=== PATIENT | male | born 1990 | race Caucasian/White ===

== ENCOUNTER 2016-04-16 22:12 | Emergency (ER) | payer OTHER ==
--- NOTE | 2016-04-16 23:59 | PROVIDER DOCUMENTATION ---
HPI-Musculoskeletal Pain/Inj - GENERAL Source: patient - HX OF PRESENT ILLNESS-MUSKULOSKELTAL Quality of Pain: reports: aching Severity in ED: mild Onset/Duration: other (2 weeks) Timing: still present Any recent injury?: No Locality of Occurance: Home Similar Symptoms Previously?: Yes Recently seen or treated by another doctor?: Yes - BACK & NECK PAIN/INJURY Back/Neck Pain Location: reports: T-spine, lumbar spine Associated Symptoms: reports: denies symptoms History of Chronic Neck or Back Pain?: Yes <Alka Brewer - Last Filed: 04/16/16 23:56> <Ramón Dobbs - Last Filed: 04/17/16 00:13> - GENERAL Chief Complaint: Back Pain Stated Complaint: BACK PAIN Time Seen by Provider: 04/16/16 23:56 - HX OF PRESENT ILLNESS-MUSKULOSKELTAL Nature of Presenting Problem: 25 year old M presents to the ED with a cc of back pain x2 weeks. PT states that pain has been worse the past 2 days. PT denies injury. (Alka Brewer) Review of Systems - Adult - REVIEW OF SYSTEMS - ADULT Constitutional: denies: chills, fever Eyes: reports: no symptoms reported Ears, Nose, Mouth & Throat: denies: ear discharge, throat pain Cardiovascular: denies: chest pain, palpitations Respiratory: denies: cough, shortness of breath Gastrointestinal: denies: nausea, vomiting Genitourinary: reports: no symptoms reported Musculoskeletal: reports: back pain. denies: neck pain Integumentary: denies: skin sores/ulcer, skin thickening Neurological: reports: no symptoms reported Psychiatric: reports: no symptoms reported Endocrine: reports: no symptoms reported Hematologic/Lymphatic: reports: no symptoms reported Allergic/Immunologic: reports: no symptoms reported All Other Systems: Reviewed and Negative <Alka Brewer - Last Filed: 04/16/16 23:56> Past History - Adult - PAST MEDICAL HISTORY-ADULT Review of Records: reports: Nursing Assessment Review, Medications Reviewed Major Childhood Illnesses: reports: denies history Cardiovascular: reports: HTN Respiratory: reports: asthma Gastrointestinal: reports: GERD Musculoskeletal: reports: chronic pain Neurological: reports: headaches/migraines Psychiatric: reports: anxiety, bipolar Other Conditions: reports: denies history Additional History: Frequent ED Visits - PRIOR SURGERIES/PROCEDURES Surgical/Procedure History: reports: cholecystectomy (11/2015), other (rectal, tubes in ears) - PRIOR HOSPITALIZATIONS Prior Hospitalizations: reports: none - IMMUNIZATION STATUS Childhood Immunizations: See Nurse Assessment Flu Vaccine: See Nurse Assessment - FAMILY HISTORY Family History: reviewed, not pertinent <OsmanAlka - Last Filed: 04/16/16 23:56> Physical Exam-Injury Related - Physical Exam-Injury Related Initial Vital Signs Reviewed: Yes General Appearance: appears well, alert, no apparent distress Neck: non-tender, full range of motion, supple, normal inspection Respiratory: chest non-tender, lungs clear, normal breath sounds Cardiovascular: normal peripheral pulses, regular rate, rhythm, no edema Back Exam: vertebral tenderness (thorasic and lumbar, greater in lumbar). negative: no CVA tenderness Extremity: normal inspection Integumentary: normal color, warm/dry Psych/Mental Status: AL, normal mood/affect, normal thought content, normal thought process, oriented x 3 <Alka Brewer - Last Filed: 04/16/16 23:56> Departure <Alka Brewer - Last Filed: 04/16/16 23:56> - Departure Time of Disposition Order: 00:10 Certified Medical Emergency: Emergent <Ramón Dobbs - Last Filed: 04/17/16 00:13> - Departure DIAGNOSIS: Low back pain Qualifiers: Chronicity: chronic Back pain laterality: midline Sciatica presence: without sciatica Qualified Code(s): M54.5 - Low back pain; G89.29 - Other chronic pain Disposition: HOME 01 Condition: Stable Additional Instructions: ED Follow Up Instructions: You have been treated by a care provider in the Emergency Department. These instructions are being provided to you so you can have an understanding of how to care for yourself upon discharge. Upon discharge from the Emergency Department, you are responsible for making arrangements for follow-up care by a physician of your choice. Take all prescribed medications as directed. Return to the Emergency Department immediately for any new or worsening symptoms. You may call the Physician Referral phone number at [phone] to obtain a list of Physicians who are taking new patients. Prescriptions: Ibuprofen [Motrin] 800 mg PO Q8H PRN PRN #20 tablet PRN Reason: inflammation Orphenadrine [Norflex] 100 mg PO BID #10 tablet Attestation - Scribe Verification/Attestation Scribe:: Alka Brewer Acting as Scribe for:: Ramón Dobbs Scribe documention review:: This chart was documented by a scribe and accurately reflects the service the provider performed and the decisions made by the provider. <Alka Brewer - Last Filed: 04/16/16 23:56> - Physician/ Mid-level Attestation Patient care was provided by Mid-level provider (HOG TRADER/PA):: Yes Mid-level provider:: Ramón Dobbs Mid-level documentation review:: The Mid-level provider documentation, treatment plan and medical decision making was reviewed by the physician who agrees with all treatment and medical decision making by the MLP. <Ramón Dobbs - Last Filed: 04/17/16 00:13> Physician Attestation - Physician Attestation I, the provider, attest to the following statement:: Ramón Dobbs Physician documentation Attestation:: This documentation recorded by the scribe accurately reflects the service I personally performed and the decisions made by me. <Alka Brewer - Last Filed: 04/16/16 23:56>
[2016-04-17] MEDS ORDERED: NORFLEX IM ONE (00:09)
[2016-04-17] MEDS ORDERED: MOTRIN PO ONE (00:10)
[2016-04-17 00:41] VITALS: BP 133/79
== END 2016-04-17 00:41 | disposition home or self-care (01) ==
LOC: ED 22:12
DX: M54.5 Low back pain (principal); G89.29 Other chronic pain; M54.6 Pain in thoracic spine; I10 Essential (primary) hypertension
CPT/HCPCS: 96372; J2360

== ENCOUNTER 2016-04-22 00:09 | Emergency (ER) | payer OTHER ==
--- NOTE | 2016-04-22 01:07 | PROVIDER DOCUMENTATION ---
HPI-General Adult - General Source: patient - History of Present Illness -Gen Adult Nature of Presenting Problems: 25 y/o m presents to the ed with left eye pain X 1 day. pt denies any foreign body to the eye. pt states he don't know why his eye hurts. Location of Pain/Injury: reports: other (left eye) Quality of Pain: reports: aching Severity: reports: mild Onset/Duration: reports: this morning Timing: reports: still present Similar Symptoms Previously?: No Recently seen or treated by another doctor?: No <Ami Ann - Last Filed: 04/22/16 01:04> <Lali Hayes - Last Filed: 04/22/16 01:26> - General Chief Complaint: Eye Complaint Stated Complaint: LT EYE COMPLAINT Time Seen by Provider: 04/22/16 00:43 Allergies/Adverse Reactions: Patient Allergies Allergy/AdvReac Type Severity Reaction Status Date / Time azithromycin Allergy Mild ITCHING Verified 04/22/16 00:21 dicyclomine HCl * Allergy Mild ITCHING Verified 04/22/16 00:21 [From Bentyl] ketorolac tromethamine * Allergy Mild ITCHING Verified 04/22/16 00:21 [From Toradol] Penicillins Allergy Mild ITCHING Verified 04/22/16 00:21 lorazepam [From Ativan] AdvReac Severe FEELS LIKE Verified 04/22/16 00:21 HIS BODY IS ON FIRE atomoxetine HCl * AdvReac Mild AGITATION Verified 04/22/16 00:21 [From Strattera] Home Medications: Albuterol Sulfate [Proair Hfa] 2 puff INH DIRECTED PRN PRN 02/24/16 Review of Systems - Adult - REVIEW OF SYSTEMS - ADULT Constitutional: denies: chills, fever Eyes: reports: eye pain. denies: discharge Neurological: denies: dizziness/vertigo, headache/migraines <Ami Ann - Last Filed: 04/22/16 01:04> Past History - Adult - PAST MEDICAL HISTORY-ADULT Review of Records: reports: Old Records Reviewed, Nursing Assessment Review, Medications Reviewed Major Childhood Illnesses: reports: denies history Cardiovascular: reports: HTN Respiratory: reports: asthma Gastrointestinal: reports: GERD Musculoskeletal: reports: chronic pain Neurological: reports: headaches/migraines Psychiatric: reports: anxiety, bipolar Other Conditions: reports: denies history Additional History: Frequent ED Visits - PRIOR SURGERIES/PROCEDURES Surgical/Procedure History: reports: cholecystectomy (11/2015), other (rectal, tubes in ears) - PRIOR HOSPITALIZATIONS Prior Hospitalizations: reports: none - IMMUNIZATION STATUS Childhood Immunizations: See Nurse Assessment Flu Vaccine: See Nurse Assessment - FAMILY HISTORY Family History: reviewed, not pertinent - SOCIAL HISTORY Smoking: cigarettes, less than 1 pack/day Provider spent 3-5 mins advising pt. on dangers of tobacco.: Discussed manners to quit use, and f/u contacts for add'l counseling. <Ami Ann - Last Filed: 04/22/16 01:04> Physical Exam-General - PHYSICAL EXAM-ADULT Initial Vital Signs Reviewed: Yes - CONSTITUTIONAL General Appearance: alert, no apparent distress - EYES Eyes: PERRL/EOMI, pink conjunctivae, fundi clear, no AV nicking - HEAD, EARS, NOSE, MOUTH & THROAT HENMT: normocephalic/atraumatic, moist mucous membranes, normal ENT inspection, TMs normal - NECK Neck: non-tender, full range of motion, supple - RESPIRATORY Respiratory: chest non-tender, lungs clear, normal breath sounds - CARDIOVASCULAR Cardiovascular: normal peripheral pulses, regular rate, rhythm - GASTROINTESTINAL (ABDOMEN) Abdominal Exam: normal bowel sounds, non tender, soft - LYMPHATIC Lymphatic: no adenopathy - SKIN Integumentary: normal color, normal turgor, warm/dry - PSYCHIATRIC Psych/Mental Status: normal mood/affect, normal thought content, normal thought process, oriented x 3 <Ami Ann - Last Filed: 04/22/16 01:04> Progress - PLAN OF CARE/RESULTS Progress/Plan/Lab Results: Orders Category Date Time Status Acetaminophen [Tylenol] Med 04/22/16 01:25 Once 650 mg PO NOW ONE Vital Signs Temp Pulse Resp BP Pulse Ox 04/22/16 00:17 97.6 F 109 H 17 161/60 100 azithromycin Allergy (Mild, Verified 04/22/16 00:21) ITCHING dicyclomine HCl * [From Bentyl] Allergy (Mild, Verified 04/22/16 00:21) ITCHING ketorolac tromethamine * [From Toradol] Allergy (Mild, Verified 04/22/16 00:21) ITCHING Penicillins Allergy (Mild, Verified 04/22/16 00:21) ITCHING lorazepam [From Ativan] Adverse Reaction (Severe, Verified 04/22/16 00:21) FEELS LIKE HIS BODY IS ON FIRE atomoxetine HCl * [From Strattera] Adverse Reaction (Mild, Verified 04/22/16 00: 21) AGITATION Albuterol Sulfate [Proair Hfa] 2 puff INH DIRECTED PRN PRN 02/24/16 Bisacodyl [Dulcolax] 10 mg AR QHS #20 supp 02/24/16 Polyethylene Glycol 3350 [Miralax] 255 gm PO DAILY #1 powder 02/24/16 Promethazine [Phenergan] 25 mg PO Q6H PRN PRN #20 tablet 02/24/16 Prednisone 20 mg PO DAILY #6 tablet 03/09/16 Albuterol Sulfate Inhaler [Ventolin Hfa] 2 puff INH Q6H PRN PRN #1 inhaler 03/15 Guaifenesin/Dm E.r. [Mucinex Dm] 1 each PO BID #30 tablet 03/15/16 Benzonatate [Tessalon] 100 mg PO TID PRN PRN #21 capsule 03/21/16 Doxycycline 100 mg PO BID #14 tablet 03/21/16 Ibuprofen [Motrin] 800 mg PO Q8H PRN PRN #20 tablet 04/17/16 Orphenadrine [Norflex] 100 mg PO BID #10 tablet 04/17/16 Glycerin/Propylene Glycol [Advanced Eye Relief Eye Drops] 15 ml OP 4XDAY PRN PRN #1 drops 04/22/16 Discussed medications with pt and f/u with specialist. <Lali Hayes - Last Filed: 04/22/16 01:26> Departure <Ami Ann - Last Filed: 04/22/16 01:04> - Departure Time of Disposition Order: 01:23 Certified Medical Emergency: Emergent <Lali Hayes - Last Filed: 04/22/16 01:26> - Departure DIAGNOSIS: Pain, eye, left Disposition: HOME 01 Condition: Stable Additional Instructions: Take medications as directed. Follow up with specialist as needed. ED Follow Up Instructions: You have been treated by a care provider in the Emergency Department. These instructions are being provided to you so you can have an understanding of how to care for yourself upon discharge. Upon discharge from the Emergency Department, you are responsible for making arrangements for follow-up care by a physician of your choice. Take all prescribed medications as directed. Return to the Emergency Department immediately for any new or worsening symptoms. You may call the Physician Referral phone number at [phone] to obtain a list of Physicians who are taking new patients. Prescriptions: Glycerin/Propylene Glycol [Advanced Eye Relief Eye Drops] 15 ml OP 4XDAY PRN PRN #1 drops PRN Reason: Pain Referrals: None,PCP [Primary Care Provider] - Elvin Mclain MD [STAFF PHYSICIAN] - Attestation - Physician/ Mid-level Attestation Patient care was provided by Mid-level provider (SHOT POLISHER/PA):: Yes Mid-level provider:: Lali Hayes Mid-level documentation review:: The Mid-level provider documentation, treatment plan and medical decision making was reviewed by the physician who agrees with all treatment and medical decision making by the [facility]. <Lali Hayes - Last Filed: 04/22/16 01:26> Physician Attestation
[2016-04-22] MEDS ORDERED: TYLENOL PO ONE (01:25)
[2016-04-22 01:49] VITALS: BP 152/60
== END 2016-04-22 01:49 | disposition home or self-care (01) ==
LOC: ED 00:09
DX: H57.12 Ocular pain, left eye (principal); I10 Essential (primary) hypertension; J45.909 Unspecified asthma, uncomplicated; G89.29 Other chronic pain; F17.210 Nicotine dependence, cigarettes, uncomplicated; Z79.899 Other long term (current) drug therapy; Z71.6 Tobacco abuse counseling
CPT/HCPCS: 99282

== ENCOUNTER 2016-06-09 16:05 | Emergency (ER) | payer OTHER ==
--- NOTE | 2016-06-09 16:51 | PROVIDER DOCUMENTATION ---
HPI-Abdominal Pain/GI Problem - General Source: patient - History of Present Illness-ABD Nature of Presenting Problems: Pt is a 25 yom who presents to ER with CC of "Hurts in my appendix area" and indicates his RUQ. Pt reports he has had this pain x2 days and describes it as a constant, sharp pain in his RUQ. Pt denies any pre-arrival treatment for his pain, but does report that he was able to eat a big mac, fries, and large soda machine printer hose. Abdominal Pain Onset Location: reports: RUQ Pain Radiation: reports: no radiation Quality of Pain: reports: sharp Severity in ED: reports: moderate Onset/Duration: reports: 2 days ago Timing: reports: constant Associated Symptoms: denies: chest pain, constipation, diarrhea, EENT symptoms, loss of appetite, nausea, vomiting, weakness, trouble walking Last BM: unsure <Justin Chávez - Last Filed: 06/09/16 17:18> <Kimberly Mcqueen - Last Filed: 06/09/16 18:19> - General Chief Complaint: Abdominal Pain Stated Complaint: RT SIDE ABD PAIN X 3DAYS Time Seen by Provider: 06/09/16 16:50 Allergies/Adverse Reactions: Patient Allergies Allergy/AdvReac Type Severity Reaction Status Date / Time azithromycin Allergy Mild ITCHING Verified 04/22/16 00:21 dicyclomine HCl * Allergy Mild ITCHING Verified 04/22/16 00:21 [From Bentyl] ketorolac tromethamine * Allergy Mild ITCHING Verified 04/22/16 00:21 [From Toradol] Penicillins Allergy Mild ITCHING Verified 04/22/16 00:21 lorazepam [From Ativan] AdvReac Severe FEELS LIKE Verified 04/22/16 00:21 HIS BODY IS ON FIRE atomoxetine HCl * AdvReac Mild AGITATION Verified 04/22/16 00:21 [From Strattera] Home Medications: Home Medication List Medication Instructions Recorded Confirmed Last Taken Type Albuterol Sulfate [Proair Hfa] 2 puff INH DIRECTED PRN PRN 02/24/16 04/22/16 04/21/16 History Bisacodyl [Dulcolax] 10 mg NC QHS #20 supp 02/24/16 04/22/16 04/21/16 Rx Polyethylene Glycol 3350 [Miralax] 255 gm PO DAILY #1 powder 02/24/16 04/22/16 04/21/16 Rx Promethazine [Phenergan] 25 mg PO Q6H PRN PRN #20 tablet 02/24/16 04/22/1604/21 Rx Prednisone 20 mg PO DAILY #6 tablet 03/09/16 04/22/16 04/21/16 Rx Albuterol Sulfate Inhaler 2 puff INH Q6H PRN PRN #1 inhaler 03/15/16 04/22/16 Rx [Ventolin Hfa] Guaifenesin/Dm E.r. [Mucinex Dm] 1 each PO BID #30 tablet 03/15/16 04/22/1612/28 Rx Benzonatate [Tessalon] 100 mg PO TID PRN PRN #21 capsule 03/21/16 04/22/1604/21 Rx Doxycycline 100 mg PO BID #14 tablet 03/21/16 04/22/16 04/21/16 Rx Ibuprofen [Motrin] 800 mg PO Q8H PRN PRN #20 tablet 04/17/16 04/22/16 04/21/16 Rx Orphenadrine [Norflex] 100 mg PO BID #10 tablet 04/17/16 04/22/16 04/21/16 Rx Glycerin/Propylene Glycol 15 ml OP 4XDAY PRN PRN #1 drops 04/22/16 Unknown Rx [Advanced Eye Relief Eye Drops] Bisacodyl [Dulcolax] 10 mg NC QHS #20 supp 06/09/16 Unknown Rx Polyethylene Glycol 3350 [Miralax] 510 gm PO DAILY #1 powder 06/09/16 Unknown Rx Review of Systems - Adult - REVIEW OF SYSTEMS - ADULT Constitutional: denies: chills, fever, fatique, night sweats Eyes: reports: no symptoms reported Ears, Nose, Mouth & Throat: reports: no symptoms reported Cardiovascular: reports: no symptoms reported Respiratory: denies: chronic cough, cough, dyspnea on exertion, excessive sputum production, hemoptysis, shortness of breath, wheezing Gastrointestinal: reports: abdominal pain. denies: hematemesis, constipation, diarrhea, difficulty swallowing, frequent heartburn, nausea, poor appetite, rectal bleeding, vomiting Genitourinary: reports: no symptoms reported Musculoskeletal: reports: no symptoms reported Integumentary: reports: no symptoms reported Neurological: reports: no symptoms reported Psychiatric: reports: no symptoms reported Endocrine: reports: no symptoms reported Hematologic/Lymphatic: reports: no symptoms reported Allergic/Immunologic: reports: no symptoms reported All Other Systems: Reviewed and Negative <Elena Chávezsh - Last Filed: 06/09/16 17:18> Past History - Adult - PAST MEDICAL HISTORY-ADULT Review of Records: reports: Nursing Assessment Review, Medications Reviewed - IMMUNIZATION STATUS Childhood Immunizations: See Nurse Assessment Flu Vaccine: See Nurse Assessment <ChávezJustin - Last Filed: 06/09/16 17:18> - PAST MEDICAL HISTORY-ADULT Major Childhood Illnesses: reports: denies history Cardiovascular: reports: HTN Respiratory: reports: asthma Gastrointestinal: reports: GERD Musculoskeletal: reports: chronic pain Neurological: reports: headaches/migraines Psychiatric: reports: anxiety, bipolar Other Conditions: reports: denies history Additional History: Frequent ED Visits - PRIOR SURGERIES/PROCEDURES Surgical/Procedure History: reports: cholecystectomy (11/2015), other (rectal, tubes in ears) - PRIOR HOSPITALIZATIONS Prior Hospitalizations: reports: none - IMMUNIZATION STATUS Childhood Immunizations: See Nurse Assessment Flu Vaccine: See Nurse Assessment - FAMILY HISTORY Family History: reviewed, not pertinent <Kimberly Mcqueen - Last Filed: 06/09/16 18:19> Physical Exam-General - PHYSICAL EXAM-ADULT Initial Vital Signs Reviewed: Yes - CONSTITUTIONAL General Appearance: appears well, alert, moderate distress, obese. negative: slow to respond, obtunded, combative - RESPIRATORY Respiratory: chest non-tender, lungs clear, normal breath sounds. negative: respiratory distress, decreased breath sounds, accessory muscle use, wheezing - CARDIOVASCULAR Cardiovascular: normal peripheral pulses, regular rate, rhythm. negative: bradycardia, tachycardia, extra beats, irregularly irregular - GASTROINTESTINAL (ABDOMEN) Abdominal Exam: normal bowel sounds, soft, tenderness (RUQ on palpation). negative: non tender, abnormal bowel sounds, distended, rebound, mass - MUSCULOSKELETAL Back Exam: no CVA tenderness, no vertebral tenderness. negative: CVA tenderness , decreased range of motion, ecchymosis, muscle spasm, swelling, vertebral tenderness Extremity: normal range of motion, non-tender, normal gait. negative: deformity , erythema, inflammation, pedal edema, slow capillary refill, swelling, tenderness - NEUROLOGIC Neurologic: grossly normal, no motor/sensory deficits - PSYCHIATRIC Psych/Mental Status: normal mood/affect, normal thought content, normal thought process, oriented x 3 <Justin Chávez - Last Filed: 06/09/16 17:18> - PHYSICAL EXAM-ADULT Initial Vital Signs Reviewed: Yes - CONSTITUTIONAL General Appearance: appears well, alert, no apparent distress - EYES Eyes: PERRL/EOMI, pink conjunctivae - HEAD, EARS, NOSE, MOUTH & THROAT HENMT: normocephalic/atraumatic, moist mucous membranes - NECK Neck: non-tender, full range of motion, supple, normal inspection - RESPIRATORY Respiratory: chest non-tender, lungs clear, normal breath sounds, no pleuratic chest pain, no respiratory distress, no accessory muscle use. negative: respiratory distress, decreased breath sounds, accessory muscle use, crackles, rales, rhonchi, wheezing - CARDIOVASCULAR Cardiovascular: normal peripheral pulses, regular rate, rhythm - GASTROINTESTINAL (ABDOMEN) Abdominal Exam: normal bowel sounds, non tender, soft, no organomegaly, no pulsatile mass, tenderness (mild, not consistent with pushing with the stethescope on the right upper, lower and mid regions.). negative: abdominal bruit, abnormal bowel sounds, distended, guarding, rigid, rebound, McBurney's point tenderness, Donahue's sign, obturator sign - MUSCULOSKELETAL Extremity: normal gait - SKIN Integumentary: normal color, normal turgor, warm/dry - NEUROLOGIC Neurologic: grossly normal, no motor/sensory deficits - PSYCHIATRIC Psych/Mental Status: normal mood/affect, normal thought content, normal thought process, oriented x 3 <Kimberly Mcqueen - Last Filed: 06/09/16 18:19> Progress - PLAN OF CARE/RESULTS Progress/Plan/Lab Results: Vital Signs Temp Pulse Resp BP Pulse Ox 06/09/16 16:43 98.2 F 107 H 20 125/92 100 azithromycin Allergy (Mild, Verified 04/22/16 00:21) ITCHING dicyclomine HCl * [From Bentyl] Allergy (Mild, Verified 04/22/16 00:21) ITCHING ketorolac tromethamine * [From Toradol] Allergy (Mild, Verified 04/22/16 00:21) ITCHING Penicillins Allergy (Mild, Verified 04/22/16 00:21) ITCHING lorazepam [From Ativan] Adverse Reaction (Severe, Verified 04/22/16 00:21) FEELS LIKE HIS BODY IS ON FIRE atomoxetine HCl * [From Strattera] Adverse Reaction (Mild, Verified 04/22/16 00: 21) AGITATION Albuterol Sulfate [Proair Hfa] 2 puff INH DIRECTED PRN PRN 02/24/16 Bisacodyl [Dulcolax] 10 mg NC QHS #20 supp 02/24/16 Polyethylene Glycol 3350 [Miralax] 255 gm PO DAILY #1 powder 02/24/16 Promethazine [Phenergan] 25 mg PO Q6H PRN PRN #20 tablet 02/24/16 Prednisone 20 mg PO DAILY #6 tablet 03/09/16 Albuterol Sulfate Inhaler [Ventolin Hfa] 2 puff INH Q6H PRN PRN #1 inhaler 03/15 Guaifenesin/Dm E.r. [Mucinex Dm] 1 each PO BID #30 tablet 03/15/16 Benzonatate [Tessalon] 100 mg PO TID PRN PRN #21 capsule 03/21/16 Doxycycline 100 mg PO BID #14 tablet 03/21/16 Ibuprofen [Motrin] 800 mg PO Q8H PRN PRN #20 tablet 04/17/16 Orphenadrine [Norflex] 100 mg PO BID #10 tablet 04/17/16 Glycerin/Propylene Glycol [Advanced Eye Relief Eye Drops] 15 ml OP 4XDAY PRN PRN #1 drops 04/22/16 Dietary Diet NPO Start ThuJun 09 164 Laboratory 06/09/16 06/09/16 06/09/16 16:57 16:51 16:51 WBC 7.18 RBC 5.55 Hgb 16.5 Hct 47.8 MCV 86.1 MCH 29.7 MCHC 34.5 RDW Std Deviation 12.4 Plt Count 288 MPV 9.8 Immature Gran % (Auto) 0.3 Neut % (Auto) 52.9 Lymph % (Auto) 33.4 [place] % (Auto) 9.3 Eos % (Auto) 4.0 Baso % (Auto) 0.1 Immature Gran # (Auto) 0.02 Neut # (Auto) 3.79 Lymph # (Auto) 2.40 [place] # (Auto) 0.67 H Eos # (Auto) 0.29 Baso # (Auto) 0.01 Sodium 139 Potassium 4.1 Chloride 101 Carbon Dioxide 24 L Anion Gap 14 BUN 10 Creatinine 0.9 Estimated GFR/1.73 m2 > 60 BUN/Creatinine Ratio 11 Glucose 85 Calculated Osmolality 276 Calcium 9.4 Total Bilirubin 0.36 AST 17 ALT 31 Alkaline Phosphatase 78 Total Protein 7.4 Albumin 4.1 Globulin 3.3 Albumin/Globulin Ratio 1.2 Amylase 31 Lipase 13 Urine Source CLEAN CATCH Urine Color YELLOW Urine Turbidity CLEAR Urine pH 8.0 Ur Specific [place] 1.023 Urine Protein TRACE A Ur Glucose (Stick) NEGATIVE Ur Ketones (Stick) NEGATIVE Urine Blood NEGATIVE Urine Nitrite NEGATIVE Urine Bilirubin NEGATIVE Urobilinogen Dipstick NORMAL Urine Leukocytes NEGATIVE Urine WBC (Auto) <10 Urine RBC (Auto) <10 U Epithel Cells (Auto) <10 Urine Bacteria (Auto) NEGATIVE Orders Category Date Time Status Saline Loc DIRECTED Care 06/09/16 16:45 Active NPO Diet 06/09/16 16:45 Active FLAT/UPRIGHT ABD/1 VIEW CHEST [RAD] Stat Exams 06/09/16 17:52 Taken AMYLASE [CHEM] Stat Lab 06/09/16 16:51 Completed CBC WITH ELECTRONIC DIFF [HEME] Stat Lab 06/09/16 16:51 Completed COMPREHENSIVE METABOLIC PANEL [CHEM] Stat Lab 06/09/16 16:51 Completed LIPASE [CHEM] Stat Lab 06/09/16 16:51 Completed URINALYSIS W/POSS RFLX CULT [URINALYSIS] Stat Lab 06/09/16 16:57 Completed - XRAY 1 XRAY: Bilateral XRAY Study: Abdomen Impression: Normal (constipation, nad ER prelim) <Kimberly Mcqueen - Last Filed: 06/09/16 18:19> Departure <Justin Chávez - Last Filed: 06/09/16 17:18> - Departure Time of Disposition Order: 18:17 Certified Medical Emergency: Emergent <Kimberly Mcqueen - Last Filed: 06/09/16 18:19> - Departure DIAGNOSIS: Constipation by delayed colonic transit Disposition: HOME 01 Condition: Stable Additional Instructions: Return for new or worsening symptoms ED Follow Up Instructions: You have been treated by a care provider in the Emergency Department. These instructions are being provided to you so you can have an understanding of how to care for yourself upon discharge. Upon discharge from the Emergency Department, you are responsible for making arrangements for follow-up care by a physician of your choice. Take all prescribed medications as directed. Return to the Emergency Department immediately for any new or worsening symptoms. You may call the Physician Referral phone number at [phone] to obtain a list of Physicians who are taking new patients. Prescriptions: Bisacodyl [Dulcolax] 10 mg NC QHS #20 supp Polyethylene Glycol 3350 [Miralax] 510 gm PO DAILY #1 powder Attestation - Scribe Verification/Attestation Scribe:: Justin Chávez Acting as Scribe for:: Kimberly Mcqueen Scribe documention review:: This chart was documented by a scribe and accurately reflects the service the provider performed and the decisions made by the provider. <Justin Chávez - Last Filed: 06/09/16 17:18> - Physician/ STAR Attestation Patient care was provided by Advanced Practice Provider:: Yes Advanced Practice Provider:: Kimberly Mcqueen Advanced Practice Provider documentation review:: The Mid-level provider documentation, treatment plan and medical decision making was reviewed by the physician who agrees with all treatment and medical decision making by the MLP. <Kimberly Mcqueen - Last Filed: 06/09/16 18:19> Physician Attestation
[2016-06-09 17:23] LABS: URINE CULTURE NEEDED? NO; URINE MICRO REVIEW NEEDED? NO; URINE SOURCE CLEAN CATCH
[2016-06-09 17:23] LABS: MANUAL DIFF NEEDED? NO
[2016-06-09 17:28] LABS: BASO% 0.1 % (0.0-0.8); EOS# 0.29 X1000 (0.0-0.7); HEMATOCRIT 47.8 % (42.0-52.0); HEMOGLOBIN 16.5 g/dL (14.0-18.0); IMM GRAN# 0.02 X1000 (0.0-0.04); IMM GRAN% 0.3 % (0.0-0.5); LYMPH% 33.4 % (20.5-51.1); MCH 29.7 PG (27-31); MCHC 34.5 g/dL (33-37); MCV 86.1 FL (81-99); MONO# 0.67 X1000 (0.11-0.59); MONO% 9.3 % (1.7-9.3); MPV 9.8 FL (7.4-10.4); NEUT% 52.9 % (42.2-75.2); PLT 288 X1000 (130-400); RBC 5.55 XMIL (4.7-6.1)
[2016-06-09 17:31] LABS: BILIRUBIN URINE NEGATIVE (NEGATIVE); BLOOD URINE NEGATIVE (NEGATIVE); COLOR YELLOW; GLUCOSE URINE NEGATIVE (NEGATIVE); LEUKOCYTES URINE NEGATIVE (NEGATIVE); NITRITE URINE NEGATIVE (NEGATIVE); PROTEIN URINE TRACE mg/dL (NEGATIVE); SP GRAVITY URINE 1.023; TURBIDITY URINE CLEAR (CLEAR); UROBILINOGEN URINE NORMAL (NORMAL)
[2016-06-09 17:32] LABS: UR EPITHELIAL CELLS <10 /HPF (<10); URINE BACTERIA NEGATIVE /HPF; URINE RBC <10 /HPF (<10); URINE WBC <10 /HPF (<10)
[2016-06-09 17:45] LABS: AGAP 14; ALBUMIN 4.1 g/dL (3.5-5.0); ALKALINE PHOSPHATASE 78 U/L (32-122); AMYLASE 31 U/L (20-200); BUN 10 mg/dL (8-22); CALCIUM 9.4 mg/dL (8.8-10.2); CHLORIDE 101 mmol/L (98-107); COSMO 276; GOT 17 U/L (10-34); GPT 31 U/L (10-44); LIPASE 13 U/L (13-60); POTASSIUM 4.1 mmol/L (3.5-5.1); SODIUM 139 mmol/L (136-145); TCO2 24 mmol/L (25-35); TOTAL BILIRUBIN 0.36 mg/dL (0.20-1.00); TOTAL PROTEIN 7.4 g/dL (6.3-8.3)
[2016-06-09 18:48] VITALS: BP 138/107
--- NOTE | 2016-06-10 08:15 | Diag Imaging Result Document ---
PROCEDURE NAME: FLAT/UPRIGHT ABD/1 VIEW CHEST - 06/09/2016 FRONTAL CHEST X-RAY AND 2 VIEWS OF THE ABDOMEN: COMPARISON: 03/21/2016. FINDINGS: The chest is clear. There are cholecystectomy clips. No bowel obstruction or free air. IMPRESSION: Negative exam.
== END 2016-06-09 18:48 | disposition home or self-care (01) ==
LOC: ED 16:05
DX: K59.09 Other constipation (principal); R10.11 Right upper quadrant pain; R10.811 Right upper quadrant abdominal tenderness; I10 Essential (primary) hypertension; J45.909 Unspecified asthma, uncomplicated; G89.29 Other chronic pain; E66.9 Obesity, unspecified; Z79.52 Long term (current) use of systemic steroids; Z79.899 Other long term (current) drug therapy
CPT/HCPCS: 74022; 80053; 81001; 82150; 83690; 85025